=== PATIENT | female | born 1975 | race Caucasian/White ===

== ENCOUNTER 2018-03-15 23:11 | Emergency (ER) | payer OTHER ==
[2018-03-16 00:15] LABS: ABSOLUTE BASOPHILS # (AUTO) 0.2 10^3/uL (0.0-0.2); ABSOLUTE EOSINOPHILS # (AUTO) 0.3 10^3/uL (0.0-0.6); ABSOLUTE LYMPHOCYTES (AUTO) 3.5 10^3/uL (0.5-4.7); ABSOLUTE MONOCYTES (AUTO) 0.8 10^3/uL (0.1-1.4); ABSOLUTE NEUT (AUTO) 8.3 10^3/uL (1.7-8.2); BASOPHILS % (AUTO) 1.2 % (0-2); EOSINOPHILS % (AUTO) 2.2 % (0-6); HEMOGLOBIN 13.8 g/dL (12.0-15.5); MEAN CORPUSCULAR HEMOGLOBIN 31.8 pg (27.0-33.4); MEAN CORPUSCULAR HGB CONC 33.8 g/dL (32.0-36.0); MEAN CORPUSCULAR VOLUME 94 fl (80-97); PLATELET COUNT 351 10^3/uL (150-450); RED BLOOD COUNT 4.36 10^6/uL (3.72-5.28); RED CELL DISTRIBUTION WIDTH 12.8 % (11.5-14.0); SEGMENTED NEUTROPHILS % (AUTO) 63.6 % (42-78); TOTAL CELLS COUNTED % (AUTO) 100 %
[2018-03-16 00:34] LABS: ALANINE AMINOTRANSFERASE 25 U/L (9-52); ALBUMIN 4.3 g/dL (3.5-5.0); ALKALINE PHOSPHATASE 74 U/L (38-126); ANION GAP 11 (5-19); ASPARTATE AMINO TRANSFERASE 24 U/L (14-36); BILIRUBIN,DIRECT 0.2 mg/dL (0.0-0.4); BILIRUBIN,TOTAL 0.5 mg/dL (0.2-1.3); BLOOD UREA NITROGEN 17 mg/dL (7-20); CARBON DIOXIDE 26 mmol/L (22-30); CHLORIDE 104 mmol/L (98-107); GLUCOSE 112 mg/dL (75-110); LIPASE 176.3 U/L (23-300); POTASSIUM 4.1 mmol/L (3.6-5.0); SODIUM 140.6 mmol/L (137-145); TOTAL PROTEIN 7.3 g/dL (6.3-8.2)
[2018-03-16] MEDS ORDERED: ONDANSETRON 4 MG TAB.RAPDIS PO ONE (01:01)
--- NOTE | 2018-03-16 01:05 | ER Document Report ---
ED General - General Chief Complaint: Nausea/Vomiting Stated Complaint: NAUSEA/VOMITING Time Seen by Provider: 03/15/18 23:57 Notes: Patient is a 42-year-old female without chronic medical problems, prior surgical history of tubal ligation who presents with 3 weeks of nausea and vomiting. The patient states that she is chronically nauseated but occasionally does vomit. Nothing seems to improve her symptoms. She states that she is intermittently able to tolerate food as well as drink but then will also randomly vomit. She is very clear to deny any abdominal pain at any time. She also denies diarrhea stating that she has had some soft stools. No fever or constitutional symptoms. She states she otherwise feels quite well. She states that she has had similar symptoms in the past when she has been and that she is currently 5 days late for her menstrual cycle. She has not seen her general doctor regarding today's concerns. She denies any additional symptoms of any kind. - Related Data Allergies/Adverse Reactions: No Known Allergies Allergy (Unverified 03/15/18 23:55) Past Medical History - General Information source: Patient - Social History Smoking Status: Former Smoker Chew tobacco use (# tins/day): No Frequency of alcohol use: Occasional Drug Abuse: None Lives with: Spouse/Significant other Family History: Reviewed & Not Pertinent Patient has suicidal ideation: No Patient has homicidal ideation: No Renal/ Medical History: Denies: Hx Peritoneal Dialysis Past Surgical History: Reports: Hx Gynecologic Surgery, Hx Kidney (Renal Surgery ) - 2012 Review of Systems - Review of Systems Notes: Constitutional: Negative for fever. HENT: Negative for sore throat. Eyes: Negative for visual changes. Cardiovascular: Negative for chest pain. Respiratory: Negative for shortness of breath. Gastrointestinal: Negative for abdominal pain, positive for nausea and vomiting Genitourinary: Negative for dysuria. Musculoskeletal: Negative for back pain. Skin: Negative for rash. Neurological: Negative for headaches, weakness or numbness. 10 point ROS negative except as marked above and in HPI. Physical Exam - Vital signs Vitals: Temp Pulse Resp BP Pulse Ox 98.6 F 78 18 127/83 H 99 03/15/18 23:17 03/15/18 23:17 03/15/18 23:17 03/15/18 23:17 03/15/18 23:17 Interpretation: Normal Notes: PHYSICAL EXAMINATION: GENERAL: Well-appearing, well-nourished and in no acute distress. HEAD: Atraumatic, normocephalic. EYES: Pupils equal round and reactive to light, extraocular movements intact, sclera anicteric, conjunctiva are normal. ENT: nares patent, oropharynx clear without exudates. Moist mucous membranes. NECK: Normal range of motion, supple without lymphadenopathy LUNGS: Breath sounds clear to auscultation bilaterally and equal. No wheezes rales or rhonchi. HEART: Regular rate and rhythm without murmurs ABDOMEN: Soft, nontender, normoactive bowel sounds. No guarding, no rebound. No masses appreciated. EXTREMITIES: Normal range of motion, no pitting or edema. No cyanosis. NEUROLOGICAL: No focal neurological deficits. Moves all extremities spontaneously and on command. PSYCH: Normal mood, normal affect. SKIN: Warm, Dry, normal turgor, no rashes or lesions noted. Course - Re-evaluation Re-evalutation: 03/16/18 01:03 Patient presents complaining of nausea and vomiting but denies any additional symptoms. She is very clear to state that she has no abdominal pain of any kind. She also denies any chest pain, shortness of breath, fever or constitutional symptoms. Her abdominal exam is completely benign without any areas of tenderness. No flank tenderness. She is not . Labs are broadly unremarkable. Clinical history is not specific for any given diagnosis other than which is not present on laboratories. The patient is 5 days late for her menstrual cycle but her quantitative hCG is negative on blood work. The patient is able to tolerate oral intake, has not had significant weight loss. Given the absence of abdominal pain I do not suspect any biliary pathology, pancreatitis, hepatitis, bowel obstruction, gastritis, appendicitis, or gastroenteritis. Patient has been able to tolerate oral intake here in the emergency department. I have prescribed ondansetron at home as needed. I do not believe any abdominal imaging is indicated at this point given the absence of any pain and the benign clinical exam. At this time will discharge with return precautions and follow-up recommendations. Verbal discharge instructions given a the bedside and opportunity for questions given. Medication warnings reviewed. Patient is in agreement with this plan and has verbalized understanding of return precautions and the need for primary care follow-up in the next 24-72 hours. - Vital Signs Vital signs: Temp Pulse Resp BP Pulse Ox 98.6 F 78 18 127/83 H 99 03/15/18 23:17 03/15/18 23:17 03/15/18 23:17 03/15/18 23:17 03/15/18 23:17 - Laboratory Result Diagrams: 03/15/18 23:59 03/15/18 23:59 Laboratory results interpreted by me: 03/15/18 03/15/18 23:59 23:59 WBC 13.0 H Absolute Neutrophils 8.3 H Glucose 112 H Discharge - Discharge Clinical Impression: Nausea and vomiting Qualifiers: Vomiting type: unspecified Vomiting Intractability: non-intractable Qualified Code(s): R11.2 - Nausea with vomiting, unspecified Condition: Good Disposition: HOME, SELF-CARE Additional Instructions: You have been seen in the Emergency Department (ED) today for nausea and vomiting. Your work up today has not shown a clear cause for your symptoms. You have been prescribed Zofran; please use as prescribed as needed for your nausea. Follow up with your doctor as soon as possible regarding today's emergent visit and your symptoms of nausea. Return to the Emergency Department (ED) if you develop abdominal pain, bloody vomiting, bloody diarrhea, if you are unable to tolerate fluids due to vomiting , or if you develop other symptoms that concern you. Prescriptions: Ondansetron [Zofran Odt 4 mg Tablet] 1 - 2 tab PO Q4H PRN #15 tab.rapdis PRN Reason: For Nausea/Vomiting
[2018-03-16 02:22] LABS: APPEARANCE,URINE CLOUDY; BILIRUBIN,URINE NEGATIVE (NEGATIVE); COLOR,URINE YELLOW; GLUCOSE, URINE NEGATIVE (NEGATIVE); KETONES,URINE NEGATIVE (NEGATIVE); LEUKOCYTE ESTERASE,URINE NEGATIVE (NEGATIVE); NITRITE,URINE NEGATIVE (NEGATIVE); PROTEIN,URINE NEGATIVE (NEGATIVE); URINE SPECIFIC GRAVITY 1.018
[2018-03-16 02:32] VITALS: BP 120/86
== END 2018-03-16 02:30 | disposition home or self-care (01) ==
LOC: ER 23:11
DX: R11.2 Nausea with vomiting, unspecified (principal); Z98.51 Tubal ligation status
CPT/HCPCS: 99283; 36415; 83690; 84703; 85025; 80053; 81001; S0119